=== PATIENT | female | born 1995 | race Caucasian/White ===

== ENCOUNTER 2019-01-07 18:54 | Emergency (ER) | payer SELFPAY ==
[~2019-01-07] VITALS: Ht 165.1 cm; Wt 64.7 kg
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
[2019-01-07] MEDS ORDERED: ONDANSETRON ODT 4 MG ONE (19:45)
[2019-01-07] MEDS ORDERED: HYDROcodone/APAP 5/325 TABLET ONE (19:46)
--- NOTE | 2019-01-07 19:48 | NUR ---
MEDS PER MAR, PER CT PT OK TO GO TO CT W/O TEST.
[2019-01-07] MEDS ORDERED: HYDROcodone/APAP 5/325 TABLET PO ONE (20:00)
[2019-01-07] MEDS ORDERED: ONDANSETRON ODT 4 MG PO ONE (20:00)
[2019-01-07 21:15] VITALS: BP 110/66
== END 2019-01-07 21:17 | disposition home or self-care (01) ==
LOC: ED 20:59
DX: S80.11XA Contusion of right lower leg, initial encounter (principal); W18.39XA Other fall on same level, initial encounter; Y93.89 Activity, other specified; Y92.89 Other specified places as the place of occurrence of the external cause; Y99.8 Other external cause status
CPT/HCPCS: 70450; 99284; Q0162

== ENCOUNTER 2019-08-27 11:07 | Emergency (ER) | payer SELFPAY ==
[~2019-08-27] VITALS: Ht 162.6 cm; Wt 65.4 kg
--- NOTE | 2019-08-27 11:51 | NUR ---
24 y/o female PRESENTS TO ED WITH C/O VB X 1 DAY. PER PT "I'M [age] WEE[age] AND STARTED TO HAVE A LITTLE BLEEDING." NADN. NO C/O V/D, TRAUMA, SOB, SYNCOPE, CP. PT WAS STRAIGHT CATH'D WITH NO COMPLICATIONS. UA SENT TO LAB. PT PLACED ON NIBP, CONT PULSE OX
--- NOTE | 2019-08-27 11:52 | NUR ---
PT TO IMAGING
--- NOTE | 2019-08-27 12:16 | NUR ---
TASK RN NOTE: PT SITTING RECLINED IN BED, NAD NOTED AT THIS TIME. RESPIRAITONS EVEN AND UNLABORED ON RA. AWAITING UA RESULTS AND US READ.
[2019-08-27 12:34] LABS: MICROSCOPIC NOT IND
[2019-08-27 13:12] LABS: BASOPHILS # (AUTO) 0.03 x10^3/uL (0-0.1); BASOPHILS % (AUTO) 0 % (0-1); EOSINOPHILS # (AUTO) 0.02 x10^3/uL (0-0.4); EOSINOPHILS % (AUTO) 0 % (1-7); LYMPHOCYTES % (AUTO) 15 % (22-44); MD SCAN; MEAN CORPUSCULAR HEMOGLOBIN 31.2 pg (27.0-34.8); MEAN CORPUSCULAR HGB CONC 33.6 g/dL (32.4-35.8); MONOCYTES # (AUTO) 0.53 x10^3/uL (0.2-0.8); MONOCYTES % (AUTO) 5 % (2-9); NEUTROPHILS % (AUTO) 80 % (42-75); PLATELET COUNT 314 x10^3/uL (130-400); RED BLOOD COUNT 4.31 x10^6/uL (3.82-5.3); RED CELL DISTRIBUTION WIDTH 13.1 % (9.6-15.2)
--- NOTE | 2019-08-27 13:14 | NUR ---
LATE ENTRY FOR 1210 BEDSIDE REPORT TO TASK RNALLAN.
[2019-08-27 13:28] VITALS: BP 100/62
== END 2019-08-27 13:30 | disposition home or self-care (01) ==
LOC: ED 12:32
DX: O20.0 Threatened abortion (principal); Z3A.01 Less than 8 weeks gestation of pregnancy
CPT/HCPCS: 36415; 76801; 81003; 84702; 85025; 86901; 99284